=== PATIENT | male | born 1985 | race Caucasian/White ===

== ENCOUNTER 2021-06-18 13:19 | Inpatient (IN) | payer OTHER ==
[2021-06-18] MEDS ORDERED: NALOXONE 0.4 MG/ML 1 ML VIAL IVP STA (13:30)
[2021-06-18] MEDS ORDERED: SODIUM CHLORIDE 0.9% 500 ML 500 ML IV STA (13:31)
[2021-06-18] MEDS ORDERED: SODIUM CHLORIDE 0.9% 1,000 ML IV STA ×2 (13:31→15:05)
[2021-06-18 13:34] LABS: Glucose,Whole Blood 164 mg/dL (75-99)
--- NOTE | 2021-06-18 13:35 | ED ---
General Adult HPI - General Chief complaint: Altered Mental Status Stated complaint: unresponsive Time Seen by Provider: 06/18/21 13:20 Source: patient, EMS, RN notes reviewed, old records reviewed Mode of arrival: EMS Limitations: no limitations - History of Present Illness Initial comments: This is a male who was found unresponsive we have no name or age and the patient he is not speaking to us and no one is with the patient. He was found unrespons anthony behind an old restaurant there was no indication at the scene that we got that there was any drug paraphernalia. There is no gross trauma noted but there is no other history available at this time. Patient remains completely unresponsive and nonverbal - Related Data Allergies Allergy/AdvReac Type Severity Reaction Status Date / Time Unable to Assess Allergy Verified 06/18/21 13:30 Review of Systems ROS Statement: Those systems with pertinent positive or pertinent negative responses have been documented in the HPI. ROS Other: All systems not noted in ROS Statement are negative. Past Medical History Past Medical History: Unable to Obtain History of Any Multi-Drug Resistant Organisms: Unobtainable Past Surgical History: Unable to Obtain Past Psychological History: Unable to Obtain Smoking Status: Unknown if ever smoked Past Alcohol Use History: Unable to Obtain Past Drug Use History: Unable to Obtain General Exam - General Exam Comments Initial Comments: GENERAL: Patient is well-developed and well-nourished. Patient is unresponsive ENT: Neck is soft and supple. No significant lymphadenopathy is noted. Oropharynx is clear. Moist mucous membranes. EYES: The sclera were anicteric and conjunctiva were pink and moist. Unable to assess extraocular motion. Pupils are not pinpoint. PULMONARY: Unlabored respirations. Good breath sounds bilaterally. No audible rales rhonchi or wheezing was noted. CARDIOVASCULAR: There is a regular rate and rhythm without any murmurs gallops or rubs. Femoral pulses are equal bilaterally ABDOMEN: Soft and nontender with normal bowel sounds. No palpable organomegaly was noted. There is no palpable pulsatile mass. SKIN: Skin is clear with no lesions or rashes and otherwise unremarkable. NEUROLOGIC: Patient is patient is unresponsive. Patient does localize to pain. There is no verbal eyes are open spontaneously. MUSCULOSKELETAL: Patient does not follow commands unable to assess LYMPHATICS: No significant lymphadenopathy is noted PSYCHIATRIC: Unable to at this time Limitations: no limitations Course Vital Signs 06/18/21 06/18/21 06/18/21 13:20 13:30 13:31 Temperature 96.9 F L Pulse Rate 97 93 Respiratory 30 H 30 H 30 H Rate Blood Pressure 141/95 143/89 O2 Sat by Pulse 99 99 Oximetry Medical Decision Making - Medical Decision Making EKG shows normal sinus rhythm at 95 bpm DC interval is 116 QRS is under 4 QT interval 366 QTC is 459. Patient's EKG shows some slight ST segment depression in precordial leads V45 and 6. Patient's lactic acid was elevated however there were no signs of infection. Patient is highly intoxicated and lactic acidosis is probably secondary to that. Patient still was not verbal but he was able to get up and get out of bed and walk around. CT of his head and C-spine are negative. I spoke with Dr. Dhillon he agreed to admit the patient admitted the patient wrote admitting orders. - Lab Data Result diagrams: 06/18/21 13:38 06/18/21 13:38 Lab Results 06/18/21 06/18/21 06/18/21 Range/Units 13:22 13:38 13:38 WBC 8.3 (3.8-10.6) k/uL RBC 4.66 (4.30-5.90) m/uL Hgb 14.1 (13.0-17.5) gm/dL Hct 41.2 (39.0-53.0) % MCV 88.4 (80.0-100.0) fL MCH 30.2 (25.0-35.0) pg MCHC 34.2 (31.0-37.0) g/dL RDW 16.0 H (11.5-15.5) % Plt Count 190 (150-450) k/uL MPV 8.6 Neutrophils % 73 % Lymphocytes % 18 % Monocytes % 5 % Eosinophils % 0 % Basophils % 1 % Neutrophils # 6.1 (1.3-7.7) k/uL Lymphocytes # 1.5 (1.0-4.8) k/uL Monocytes # 0.4 (0-1.0) k/uL Eosinophils # 0.0 (0-0.7) k/uL Basophils # 0.1 (0-0.2) k/uL Poikilocytosis Slight Sodium (137-145) mmol/L Potassium (3.5-5.1) mmol/L Chloride (98-107) mmol/L Carbon Dioxide (22-30) mmol/L Anion Gap mmol/L BUN (9-20) mg/dL Creatinine (0.66-1.25) mg/dL Est GFR (CKD-EPI)AfAm (>60 ml/min/1.73 sqM) Est GFR (CKD-EPI)NonAf (>60 ml/min/1.73 sqM) Glucose (74-99) mg/dL POC Glucose (mg/dL) 164 H (75-99) mg/dL POC Glu [employer] ID Aidee Davis Plasma Lactic Acid Renato (0.7-2.0) mmol/L Calcium (8.4-10.2) mg/dL Total Bilirubin (0.2-1.3) mg/dL AST (17-59) U/L ALT (4-49) U/L Alkaline Phosphatase (38-126) U/L Creatine Kinase (55-170) U/L Troponin I (0.000-0.034) ng/mL Total Protein (6.3-8.2) g/dL Albumin (3.5-5.0) g/dL Amylase (30-110) U/L Lipase U/L Salicylates mg/dL Urine Opiates Screen Not Detected (NotDetected) Ur Oxycodone Screen Not Detected (NotDetected) Urine Methadone Screen Not Detected (NotDetected) Ur Propoxyphene Screen Not Detected (NotDetected) Acetaminophen ug/mL Ur Barbiturates Screen Not Detected (NotDetected) U Tricyclic Antidepress Not Detected (NotDetected) Ur Phencyclidine Scrn Not Detected (NotDetected) Ur Amphetamines Screen Detected H (NotDetected) U Methamphetamines Scrn Detected H (NotDetected) U Benzodiazepines Scrn Not Detected (NotDetected) Urine Cocaine Screen Detected H (NotDetected) U Marijuana (THC) Screen Detected H (NotDetected) Serum Alcohol mg/dL 06/18/21 06/18/21 06/18/21 Range/Units 13:38 13:38 13:38 WBC (3.8-10.6) k/uL RBC (4.30-5.90) m/uL Hgb (13.0-17.5) gm/dL Hct (39.0-53.0) % MCV (80.0-100.0) fL MCH (25.0-35.0) pg MCHC (31.0-37.0) g/dL RDW (11.5-15.5) % Plt Count (150-450) k/uL MPV Neutrophils % % Lymphocytes % % Monocytes % % Eosinophils % % Basophils % % Neutrophils # (1.3-7.7) k/uL Lymphocytes # (1.0-4.8) k/uL Monocytes # (0-1.0) k/uL Eosinophils # (0-0.7) k/uL Basophils # (0-0.2) k/uL Poikilocytosis Sodium 140 (137-145) mmol/L Potassium 3.1 L (3.5-5.1) mmol/L Chloride 107 (98-107) mmol/L Carbon Dioxide 14 L (22-30) mmol/L Anion Gap 19 mmol/L BUN 8 L (9-20) mg/dL Creatinine 0.49 L (0.66-1.25) mg/dL Est GFR (CKD-EPI)AfAm >90 (>60 ml/min/1.73 sqM) Est GFR (CKD-EPI)NonAf 78 (>60 ml/min/1.73 sqM) Glucose 169 H (74-99) mg/dL POC Glucose (mg/dL) (75-99) mg/dL POC Glu [employer] ID Plasma Lactic Acid Renato 5.6 H* (0.7-2.0) mmol/L Calcium 8.9 (8.4-10.2) mg/dL Total Bilirubin 0.4 (0.2-1.3) mg/dL AST 142 H (17-59) U/L ALT 163 H (4-49) U/L Alkaline Phosphatase 57 (38-126) U/L Creatine Kinase 227 H (55-170) U/L Troponin I <0.012 (0.000-0.034) ng/mL Total Protein 7.8 (6.3-8.2) g/dL Albumin 4.3 (3.5-5.0) g/dL Amylase 397 H* (30-110) U/L Lipase 5009 U/L Salicylates <1.0 mg/dL Urine Opiates Screen (NotDetected) Ur Oxycodone Screen (NotDetected) Urine Methadone Screen (NotDetected) Ur Propoxyphene Screen (NotDetected) Acetaminophen <10.0 ug/mL Ur Barbiturates Screen (NotDetected) U Tricyclic Antidepress (NotDetected) Ur Phencyclidine Scrn (NotDetected) Ur Amphetamines Screen (NotDetected) U Methamphetamines Scrn (NotDetected) U Benzodiazepines Scrn (NotDetected) Urine Cocaine Screen (NotDetected) U Marijuana (THC) Screen (NotDetected) Serum Alcohol 468 H* mg/dL Disposition Clinical Impression: Alcoholic intoxication, Cocaine abuse, Methamphetamine abuse, Lactic acidosis, Pancreatitis Disposition: ADMITTED IP TO THIS HOSP Referrals: None,Stated [Primary Care Provider] - 1-2 days Time of Disposition: 16:35
[2021-06-18 14:06] LABS: Basophils # (A) 0.1 k/uL (0-0.2); Basophils % (A) 1 %; Eosinophils % (A) 0 %; HCT 41.2 % (39.0-53.0); HGB 14.1 gm/dL (13.0-17.5); Lymphocytes # (A) 1.5 k/uL (1.0-4.8); Lymphocytes % (A) 18 %; MCH 30.2 pg (25.0-35.0); MCHC 34.2 g/dL (31.0-37.0); MCV 88.4 fL (80.0-100.0); Mean Platelet Volume 8.6; Monocytes # (A) 0.4 k/uL (0-1.0); Monocytes % (A) 5 %; Neutrophils # (A) 6.1 k/uL (1.3-7.7); Neutrophils % (A) 73 %; Platelet Count 190 k/uL (150-450); Poikilocytosis Slight; RBC 4.66 m/uL (4.30-5.90); WBC 8.3 k/uL (3.8-10.6)
[2021-06-18 14:18] LABS: ALT 163 U/L (4-49); AST 142 U/L (17-59); Acetaminophen <10.0 ug/mL; African American GFR (CKD) >90 (>60 ml/min/1.73 sqM); Albumin 4.3 g/dL (3.5-5.0); Alkaline Phosphatase 57 U/L (38-126); Anion Gap 19 mmol/L; Blood Urea Nitrogen 8 mg/dL (9-20); Calcium 8.9 mg/dL (8.4-10.2); Carbon Dioxide 14 mmol/L (22-30); Chloride 107 mmol/L (98-107); Creatine Kinase 227 U/L (55-170); Glucose 169 mg/dL (74-99); Non-African American GFR(CKD) 78 (>60 ml/min/1.73 sqM); Potassium 3.1 mmol/L (3.5-5.1); Salicylate <1.0 mg/dL; Sodium 140 mmol/L (137-145); Total Bilirubin 0.4 mg/dL (0.2-1.3); Total Protein 7.8 g/dL (6.3-8.2)
--- NOTE | 2021-06-18 14:21 | CT ---
EXAMINATION TYPE: CT brain cspine wo con DATE OF EXAM: 06/18/2021 COMPARISON: None HISTORY: Unresponsive CT DLP: 1249.8 mGycm Automated exposure control for dose reduction was used. TECHNIQUE: CT scan of the head and cervical spine are performed without contrast. FINDINGS: There is no acute intracranial hemorrhage, mass effect, or midline shift identified. The ventricles and sulci are within normal limits in size. The globes are intact and the visualized sin uses are clear. Cervical spine is visualized in its entirety from C1 through upper thoracic levels and demonstrates s atisfactory alignment without evidence of acute fracture or dislocation. Prevertebral soft tissue ap pears within normal limits. The C1-C2 articulation is unremarkable. IMPRESSION: 1. There is no acute fracture or dislocation evident in the cervical spine. 2. No acute intracranial hemorrhage, mass effect, or midline shift is seen.
[2021-06-18 14:38] LABS: Amphetamine Screen,Urine Detected (NotDetected); Barbiturate Screen,Urine Not Detected (NotDetected); Benzodiazepines Screen,Urine Not Detected (NotDetected); Cocaine Screen,Urine Detected (NotDetected); Methadone Screen, Urine Not Detected (NotDetected); Opiate Screen,Urine Not Detected (NotDetected); Oxycodone Screen, Urine Not Detected (NotDetected); Phencyclidine Screen,Urine Not Detected (NotDetected); Tricyclic Antidepressant,Urine Not Detected (NotDetected); Urn Cannabinoid Scrn Detected (NotDetected)
[2021-06-18 14:47] LABS: Alcohol 468 mg/dL; Amylase 397 U/L (30-110)
[2021-06-18 15:04] LABS: Lipase 5009 U/L
[2021-06-18] MEDS: 1: MVI, ADULT NO.4 WITH VIT K 10 ML, THIAMINE 100 MG, FOLIC ACID 1 MG in SODIUM CHLORIDE IV SCH ×4 (16:02)
[2021-06-18] MEDS ORDERED: POTASSIUM CHLORIDE 20 MEQ in WATER FOR INJECTION 1 100ML.BAG IVPB STA (16:11)
[2021-06-18] MEDS ORDERED: SODIUM CHLORIDE 0.9% 1,000 ML IV ONE (16:36)
[2021-06-18] MEDS ORDERED: LORazepam 2 MG/ML INJ IV PRN ×2 (19:48)
[2021-06-18] MEDS ORDERED: Potassium Replacement Protocol 1 EACH MISC MISCELLANE PRN (19:49)
[2021-06-18] MEDS ORDERED: ACETAMINOPHEN TAB 500 MG TAB PO PRN (19:49)
[2021-06-18] MEDS ORDERED: Magnesium Replacement Protocol 1 EACH MISC MISCELLANE PRN (19:49)
--- NOTE | 2021-06-18 20:46 | HP ---
HISTORY AND PHYSICAL CHIEF COMPLAINT: Change in mental status. HISTORY OF PRESENT ILLNESS: This is a 35-year-old gentleman with a past medical history of unknown medical history, apparently not being followed up at any primary physician's office, apparently found to be unresponsive behind a store. The patient taken to [facility] and the patient was suspected drug intoxication. Patient taken to [facility] and admitted for further evaluation and treatment. The evaluation showed potassium 3.1. Lactic acid elevated to 3.6 and amylase is 397 indicating some pancreatitis. AST/ALT was elevated. Drug screen is positive for amphetamine, methamphetamine, cocaine, marijuana, and alcohol was 468. Patient admitted for further evaluation and treatment. Patient is waking up slightly alert, restless at this time but stuporous and unable to give a coherent history. The patient was even noted as a Ana María Huntley in the ER initially. MEDICATIONS: Home medications are Vistaril, buspirone, Effexor, Seroquel, Haldol D and Cogentin. ALLERGIES: None. Family history, social history and review of systems could not be taken. PHYSICAL EXAMINATION: Patient is stuporous. Pulse is 109, blood pressure 141/90, respiration 20, temperature normal, pulse ox 97% on room air. HEENT: Conjunctivae normal. Oral mucosa moist. NECK is no jugular venous distention. No carotid bruit. No lymph node enlargement. CARDIOVASCULAR systems: S1, S2. RESPIRATION: Breath sounds diminished in the bases. A few scattered rhonchi. ABDOMEN: Soft, nontender. No mass. NERVOUS SYSTEM: Higher functions as mentioned earlier. Otherwise full exam cannot be done. SKIN: No ulcer, no rash and no bleeding. JOINTS: No active deforming arthropathy. LABS: WBC 8.2, hemoglobin 14.1, sodium 130, potassium 3.9. ASSESSMENT: 1. Change in mental status acute metabolic encephalopathy possibly drug induced. 2. Acute alcohol intoxication. 3. Polysubstance abuse. 4. Increased AST/ALT possibly alcoholic hepatitis. 5. Elevated lactic acid post secondary dehydration. 6. Hypokalemia. 7. Decreased CO2. 8. Elevated amylase, possibly mild acute pancreatitis. 9. History of possible psychiatric disease. RECOMMENDATIONS AND DISCUSSION: This 35-year-old gentleman who presented with multiple complex medical issues, we will monitor the patient closely, continue the current medications, management and symptomatic treatment. The patient is waking up at this time. I recommend [facility] protocol, psych consultation. Resume some of the home medications once the patient is awake and continue to monitor. The prognosis guarded because of multiple complex medical issues. Further recommendations to follow. MMODL / IJN: [id number] /
[2021-06-18] MEDS: HEPARIN SODIUM,PORCINE/PF 5,000 UNIT/0.5 ML SYRINGE SQ SCH (21:19)
[2021-06-19] MEDS: 1: MVI, ADULT NO.4 WITH VIT K 10 ML, THIAMINE 100 MG, FOLIC ACID 1 MG in SODIUM CHLORIDE IV SCH ×12 (05:03→19:55)
[2021-06-19 08:32] LABS: African American GFR (CKD) 163.9 (60.0-200.0); Albumin 3.7 g/dL (3.80-4.90); Albumin/Globulin Ratio 1.16 (1.60-3.17); Anion Gap 9.2 mmol/L (4.00-12.00); Calcium 7.4 mg/dL (8.7-10.3); Carbon Dioxide 18.8 mmol/L (21.6-31.8); Globulin 3.2 g/dL (1.6-3.3); Non-African American GFR(CKD) 141.4 (60.0-200.0); Potassium 3.9 mmol/L (3.5-5.5); Total Bilirubin 0.3 mg/dL (0.3-1.2); Total Protein 6.9 g/dL (6.2-8.2)
--- NOTE | 2021-06-19 08:52 | XR ---
EXAMINATION TYPE: XR chest 1V portable DATE OF EXAM: 06/19/2021 COMPARISON: 01/14/2021 HISTORY: Shortness of breath TECHNIQUE: Single frontal view of the chest is obtained. FINDINGS: There is no focal air space opacity, pleural effusion, or pneumothorax seen. The cardiac silhouette size is within normal limits. The osseous structures are intact. No overt failure. IMPRESSION: No acute process.
[2021-06-19] MEDS: HEPARIN SODIUM,PORCINE/PF 5,000 UNIT/0.5 ML SYRINGE SQ SCH ×2 (08:58→21:29)
[2021-06-19] MEDS: LORazepam 2 MG/ML INJ IV PRN ×3 (08:58→17:33)
[2021-06-19] MEDS ORDERED: PANTOPRAZOLE 40 MG/10 ML VIAL IVP SCH (09:00)
[2021-06-19 09:35] LABS: African American GFR (CKD) >90 (>60 ml/min/1.73 sqM); Amylase 184 U/L (30-110); Anion Gap 7 mmol/L; Blood Urea Nitrogen 4 mg/dL (9-20); Calcium 8.6 mg/dL (8.4-10.2); Carbon Dioxide 22 mmol/L (22-30); Chloride 112 mmol/L (98-107); Glucose 118 mg/dL (74-99); Lipase 651 U/L (23-300); Non-African American GFR(CKD) >90 (>60 ml/min/1.73 sqM); Potassium 3.7 mmol/L (3.5-5.1); Sodium 141 mmol/L (137-145)
[2021-06-19 11:13] LABS: Basophils # (A) 0.05 X 10*3/uL (0.00-0.10); Basophils % (A) 0.9 %; Eosinophils # (A) 0.03 X 10*3/uL (0.04-0.35); Eosinophils % (A) 0.6 %; HCT 32.9 % (39.6-50.0); HGB 11.2 g/dL (13.0-17.0); Lymphocytes # (A) 1.31 X 10*3/uL (0.90-5.00); Lymphocytes % (A) 24.5 %; MCH 29.1 pg (27.0-32.0); MCV 85.5 fL (80.0-97.0); Mean Platelet Volume 10.9 fL (9.5-12.2); Monocytes % (A) 7.5 %; Neutrophils # (A) 3.55 X 10*3/uL (1.80-7.70); Neutrophils % (A) 66.3 %; Platelet Count 171 X 10*3/uL (140-440); RBC 3.85 X 10*6/uL (4.40-5.60); WBC 5.35 X 10*3/uL (4.50-10.00)
[2021-06-19] MEDS ORDERED: QUEtiapine 50 MG TAB PO PRN (13:20)
[2021-06-19] MEDS ORDERED: haloperidoL 5 MG TAB PO PRN (13:21)
--- NOTE | 2021-06-19 13:31 | P.CN ---
Psychiatric Consult - . Consult date: 06/19/21 Consult:: 06/19/21 13:23 IDENTIFYING DATA: This patient is a 35-year-old male with history of polysubstance abuse who is currently homeless REASON FOR REFERRAL: Psychiatry was consulted for psychiatric evaluation HISTORY OF PRESENT ILLNESS: The patient presented to the hospital yesterday as he was found unresponsive according to ER report. Patient was fine behind a old restaurant and was also carrying drug paraphernalia. Patient has a history of several psychiatric hospitalizations and polysubstance abuse. Recent computed tomography scan of his brain was negative. Patient's UDS is positive for methamphetamine, amphetamines, cocaine, THC. Patient's AST/ALT were elevated. Patient's blood alcohol level was 489 on admission. Patient has a history of going through severe withdrawals from alcohol including delirium tremens. Patient does follow-up at [facility]. He was seen today by editorial writer and was fairly alert during conversation. He was tremulous and states that he is feeling depressed at this time. He claims that he is feeling suicidal. He claims that he is going through withdrawals at this time and is scared. He states that he wants to go to rehab at [place] however is not able to say when he has an intake today. States that his sleep is poor. He claims that he is hearing voices telling him to hurt himself. He was fairly guarded/evasive about the events that occurred prior to him coming to the hospital. He states that he drank a 2 pints of whiskey and went behind a store to call his audit officer. He states that he is having anxiety at this time. He claims that he has not been taking his medications at home. At this time patient denies any homical ideations, intent or plan. Patient denies any visual hallucinations and denies any paranoia or delusions. Patients admits to using drugs recreationally including methamphetamine, cocaine, marijuana and alcohol as noted above. PAST PSYCHIATRIC HISTORY: Patient has a a history of polysubstance abuse and schizoaffective disorder. Patient has been on several different medications in the past including paliperidone and Seroquel along with Zoloft. Patient has had several different psychiatric hospitalizations and also has been court ordered. Patient denies any psychiatric outpatient follow-up. Patient denies any history of suicide attempts in the past. PAST MEDICAL HISTORY: Hepatitis C. ALLERGIES: as per EMR. CHEMICAL DEPENDENCY HISTORY: as per HPI. FAMILY PSYCHIATRIC/SUBSTANCE USE HISTORY: Unable to obtain SOCIAL HISTORY: Unable to obtain. Patient is homeless however. MENTAL STATUS EXAM: General Appearance: Patient appears to be shoveled appearance, tremulous, stated age is alert, cooperative. Patient appears to have poor hygiene and grooming wearing hospital gown with poor eye contact. Behavior: Patient is calmly lying in bed without any agitated behavior. Tremulous. Speech: Patient's speech is fluent and nonpressured. Mood/Affect: Patient reports their mood is "depressed and anxious", affect is congruent Suicidality/Homicidality: Patient denies having any suicidal or homicidal ideation intent or plan. Perceptions: Patient denies any visual hallucinations . He states that he is hearing voices telling him to kill himself. Though content/process: [place], poverty of content. Guarded/evasive. Memory and concentration: AOX3, grossly intact for the purposes of this session. Can spell "WORLD" backwards Judgment and insight: poor IMPRESSIONS: Schizoaffective disorder, depressive type Alcohol use disorder, severe, currently in withdrawal Cocaine use disorder Cannabis use disorders Methamphetamine abuse Nicotine dependence PLAN: -At this time patient DOES meet criteria for inpatient psychiatric admission. -Would recommend the following medication changes/additions: Seroquel 50 mg daily at bedtime when necessary for insomnia. Patient was receiving Invega Sustenna long-acting injection shots every month however unsure of the last dose. Valium 5 mg 3 times a day for alcohol withdrawal. Haldol by mouth and IM when necessary for acute agitation/psychosis. -CIWA protocol with PRN Ativan for alcohol withdrawal. Continue to monitor vital signs. -Continue 1:1 sitter for safety -Cannot leave AMA at this time. Patient will need a petition and certification if attempting to leave AMA. -Harness Puller spoke with patient about substance abuse and the harmful effects on medical and mental health, patient verbally understood and agreed. -Patient should be treated for impending DTs for 48 hours until he is more stable from alcohol withdrawal then patient can be transferred to the mental health unit. -Communicated plan to patient's nurse -Psychiatry will sign off at this time -Please contact with any questions.
[2021-06-19] MEDS ORDERED: diazePAM 5 MG TAB PO SCH (16:00)
--- NOTE | 2021-06-19 18:03 | PN ---
PROGRESS NOTE DATE OF SERVICE: 06/19/2021 This 35-year-old gentleman who was admitted with change in mental status also had acute metabolic encephalopathy. The patient had ETOH intoxication. Psychiatry saw the patient today and recommended other medication adjustments. Impending DTs at this time. The patient continues to be drowsy and at times arousable and restless. PHYSICAL EXAMINATION: Pulse is 99, blood pressure 125/84, respirations 16, temperature 98 degrees, pulse ox 100% on room air. HEENT: Conjunctivae normal. NECK: No jugular venous distention. CARDIOVASCULAR: S1, S2 muffled. RESPIRATION: Breath sounds diminished at the bases. A few scattered rhonchi. ABDOMEN: Soft, nontender. NERVOUS SYSTEM: No focal deficit. LAB STUDIES: Hemoglobin 11.2 and glucose 118. Amylase and lipase are elevated. Lactic acid 3.1. ASSESSMENT: 1. Change in mental status, acute metabolic encephalopathy, possibly multiple drug- induced. 2. Acute alcohol intoxication, present on admission. 3. Impending delirium tremens and early delirium tremens. 4. Polysubstance abuse. 5. Acute pancreatitis secondary to alcohol. 6. Increased AST, ALT; possibly alcoholic hepatitis. 7. Elevated lactic acid, possibly secondary to dehydration, present on admission. 8. Hypokalemia. 9. Decreased carbon dioxide. 10.Elevated amylase and lipase. 11.History of schizoaffective disorder, depressive type. RECOMMENDATIONS AND DISCUSSION: I recommend to continue current medications, continue with symptomatic treatment. Otherwise, CIWA protocol. Will repeat electrolytes tomorrow. Closely follow with Psychiatry. Social Work and Case Management to arrange for outpatient drug rehab. Impending DT precautions. Prognosis is guarded. MMODL / IJN: [id number] / [facility]
[2021-06-19] MEDS: diazePAM 5 MG TAB PO SCH ×2 (21:28→23:45)
[2021-06-20] MEDS: diazePAM 5 MG TAB PO SCH ×2 (08:36→20:29)
[2021-06-20] MEDS: LORazepam 2 MG/ML INJ IV PRN ×3 (08:36→20:45)
[2021-06-20] MEDS: PANTOPRAZOLE 40 MG TABLET PO SCH (08:36)
[2021-06-20] MEDS: HEPARIN SODIUM,PORCINE/PF 5,000 UNIT/0.5 ML SYRINGE SQ SCH ×2 (08:37→20:30)
[2021-06-20] MEDS: HALOPERIDOL LACTATE 5 MG/ML 1 ML VIAL IM PRN ×2 (11:50→17:17)
[2021-06-20 12:01] LABS: Basophils # (A) 0.03 X 10*3/uL (0.00-0.10); Basophils % (A) 0.7 %; Eosinophils # (A) 0.13 X 10*3/uL (0.04-0.35); Eosinophils % (A) 2.9 %; HCT 33.3 % (39.6-50.0); HGB 11.5 g/dL (13.0-17.0); Lymphocytes # (A) 1.13 X 10*3/uL (0.90-5.00); Lymphocytes % (A) 25.6 %; MCH 29.6 pg (27.0-32.0); MCHC 34.5 g/dL (32.0-37.0); MCV 85.8 fL (80.0-97.0); Mean Platelet Volume 11.6 fL (9.5-12.2); Monocytes # (A) 0.42 X 10*3/uL (0.20-1.00); Monocytes % (A) 9.5 %; Neutrophils # (A) 2.69 X 10*3/uL (1.80-7.70); Neutrophils % (A) 61.1 %; Platelet Count 149 X 10*3/uL (140-440); RBC 3.88 X 10*6/uL (4.40-5.60); WBC 4.41 X 10*3/uL (4.50-10.00)
--- NOTE | 2021-06-20 12:35 | P.PN ---
Subjective Progress Note Date: 06/20/21 Principal diagnosis: Delirium tremens secondary to alcohol withdrawal 35-year-old gentleman with the past medical history of alcohol abuse admitted for encephalopathy due to alcohol intoxication. On 06/20/2021- patient is lying in bed appears to have tremors and is slightly confused. Sitter at the bedside. As per discussion with the nursing staff patient is still requiring Ativan for delirium tremens. Patient states that he has palpitations, denies having any chest pain or difficulty in breathing. He denies having any abdominal pain nausea vomiting. He states that his last drink was couple of days back and that he is trying to quit. On reviewing the vitals T-max of 99.1, heart rate 90, respiratory rate 17, blood pressure 127/81, saturating at 99% on room air. Objective - Vital Signs Vital signs: Vital Signs Temp 99.1 F 06/20/21 02:00 Pulse 52 L 06/20/21 02:00 Resp 17 06/20/21 02:00 BP 127/81 06/20/21 02:00 Pulse Ox 99 06/20/21 02:00 Intake & Output 06/19/21 06/20/21 06/20/21 18:59 06:59 18:59 Weight 81.647 kg Other: # Voids 5 3 - Exam Physical exam GEN. APPEARANCE: Having tremors HE ENT: No pallor. No icterus. Neck no JVD RESPIRATORY EXAM: Bilateral breath sounds are positive. No wheeze or crackles CARDIOVASCULAR EXAM: S1-S2 heard. Tachycardia GI/ABDOMINAL EXAM: soft, normal bowel sounds. Nontender, nondistended no organomegaly EXTREMITIES EXAM: No pedal edema NEUROLOGICAL EXAM: Slightly confused, no focal deficits SKIN EXAM: no rash - Labs CBC & Chem 7: 06/20/21 08:43 06/19/21 07:47 Labs: Abnormal Lab Results - Last 24 Hours (Table) 06/19/21 Range/Units 07:47 RBC 3.85 L (4.40-5.60) X 10*6/uL Hgb 11.2 L (13.0-17.0) g/dL Hct 32.9 L (39.6-50.0) % RDW 15.0 H (11.5-14.5) % Eosinophils # 0.03 L (0.04-0.35) X 10*3/uL Assessment and Plan Assessment: ASSESSMENT Encephalopathy due to delirium tremens Acute alcohol intoxication hasn't on admission Polysubstance abuse Acute pancreatitis secondary to alcohol Transaminitis Hypokalemia History of schizoaffective disorder, depressive type PLAN: Patient to be monitored for delirium tremens, on CIWA protocol. Will replace electrolytes. Patient was evaluated by psychiatric services and to cont inue with DT precautions. Patient cannot leave AGAINST MEDICAL ADVICE, to continue with sitter at bedside. Further recommendations depending on the progress of the patient.
[2021-06-20 21:03] LABS: Albumin 3.5 g/dL (3.80-4.90); Albumin/Globulin Ratio 1.17 (1.60-3.17); Anion Gap 9.4 mmol/L (4.00-12.00); BUN/Creat Ratio 11.67 Ratio (12.00-20.00); Calcium 8.6 mg/dL (8.7-10.3); Carbon Dioxide 20.6 mmol/L (21.6-31.8); Non-African American GFR(CKD) 131.2 (60.0-200.0); Potassium 3.7 mmol/L (3.5-5.5); Total Bilirubin 0.6 mg/dL (0.3-1.2); Total Protein 6.5 g/dL (6.2-8.2)
[2021-06-20] MEDS: 1: MVI, ADULT NO.4 WITH VIT K 10 ML, THIAMINE 100 MG, FOLIC ACID 1 MG in SODIUM CHLORIDE IV SCH ×4 (21:18)
[2021-06-21] MEDS: LORazepam 2 MG/ML INJ IV PRN ×8 (00:06→23:06)
[2021-06-21] MEDS: diazePAM 5 MG TAB PO SCH ×2 (07:04→22:57)
[2021-06-21] MEDS: PANTOPRAZOLE 40 MG TABLET PO SCH (07:05)
[2021-06-21] MEDS: HEPARIN SODIUM,PORCINE/PF 5,000 UNIT/0.5 ML SYRINGE SQ SCH ×2 (07:06→22:57)
[2021-06-21] MEDS: HALOPERIDOL LACTATE 5 MG/ML 1 ML VIAL IM PRN ×2 (07:06→10:35)
[2021-06-21] MEDS: 1: MVI, ADULT NO.4 WITH VIT K 10 ML, THIAMINE 100 MG, FOLIC ACID 1 MG in SODIUM CHLORIDE IV SCH ×16 (08:50→21:33)
[2021-06-21] MEDS: NICOTINE 21MG/24HR PATCH TRANSDERM SCH (09:06)
[2021-06-21] MEDS: QUEtiapine 200 MG TAB PO SCH (22:56)
--- NOTE | 2021-06-22 02:05 | P.PN ---
Subjective Progress Note Date: 06/21/21 Principal diagnosis: Delirium tremens secondary to alcohol withdrawal 35-year-old gentleman with the past medical history of alcohol abuse admitted for encephalopathy due to alcohol intoxication. On 06/20/2021- patient is lying in bed appears to have tremors and is slightly confused. Sitter at the bedside. As per discussion with the nursing staff patient is still requiring Ativan for delirium tremens. Patient states that he has palpitations, denies having any chest pain or difficulty in breathing. He denies having any abdominal pain nausea vomiting. He states that his last drink was couple of days back and that he is trying to quit. On reviewing the vitals T-max of 99.1, heart rate 90, respiratory rate 17, blood pressure 127/81, saturating at 99% on room air. On 06/21/2021 -patient was seen and examined at the bedside. As per discussion with the nursing staff, patient became agitated this morning although stayed out of the window. Sitter was at the bedside and he was given a dose of Haldol which calmed him down. He is currently asleep and difficult to arouse. Review of systems could not be done. On reviewing the vitals temperature 98.4, heart rate 61, respiratory 16, blood pressure 134/83, saturating at 97% on room air. Patient's labs reviewed this morning hemoglobin stable around 9.5 platelets 149. Patient's medications have been reviewed Objective - Vital Signs Vital signs: Vital Signs Temp 98.1 F 06/21/21 08:07 Pulse 75 06/21/21 08:07 Resp 16 06/21/21 08:07 BP 141/92 06/21/21 08:07 Pulse Ox 98 06/21/21 08:07 Intake & Output 06/20/21 06/21/21 06/21/21 18:59 06:59 18:59 Intake Total 1011.2 Balance 1011.2 Intake: Intake, IV Titration 1011.2 Amount Mvi, Adult No.4 with Vit 1011.2 K 10 ml Thiamine 100 mg Folic Acid 1 mg In Sodium Chloride 0.9% 1,000 ml @ 100 mls/hr IV .BY DURATION ADRIANNA Rx#: [id number] Other: # Voids 4 - Exam GEN. APPEARANCE: Having tremors HE ENT: No pallor. No icterus. Neck no JVD RESPIRATORY EXAM: Bilateral breath sounds are positive. No wheeze or crackles CARDIOVASCULAR EXAM: S1-S2 heard. Tachycardia GI/ABDOMINAL EXAM: soft, normal bowel sounds. Nontender, nondistended no organomegaly EXTREMITIES EXAM: No pedal edema NEUROLOGICAL EXAM: Drowsy , just got Haldol SKIN EXAM: no rash - Labs CBC & Chem 7: 06/20/21 08:43 06/19/21 17:48 Labs: Abnormal Lab Results - Last 24 Hours (Table) 06/19/21 Range/Units 17:48 Chloride 111 H (96-109) mmol/L Carbon Dioxide 20.6 L (21.6-31.8) mmol/L BUN 7.0 L (9.0-27.0) mg/dL BUN/Creatinine Ratio 11.67 L (12.00-20.00) Ratio Glucose 134 H (70-110) mg/dL Calcium 8.6 L (8.7-10.3) mg/dL AST 114 H (14-35) U/L ALT 127 H (10-49) U/L Albumin 3.50 L (3.80-4.90) g/dL Albumin/Globulin Ratio 1.17 L (1.60-3.17) g/dL Assessment and Plan Assessment: ASSESSMENT Encephalopathy due to delirium tremens Acute alcohol intoxication hasn't on admission Polysubstance abuse Acute pancreatitis secondary to alcohol Transaminitis Hypokalemia History of schizoaffective disorder, depressive type PLAN: Patient to be monitored for delirium tremens, on CIWA protocol and still requiring multiple doses of Ativan. Will replace electrolytes. Patient was evaluated by psychiatric services and to continue with DT precautions. Patient cannot leave AGAINST MEDICAL ADVICE, to continue with sitter at bedside. Further recommendations depending on the progress of the patient.
[2021-06-22] MEDS: 1: MVI, ADULT NO.4 WITH VIT K 10 ML, THIAMINE 100 MG, FOLIC ACID 1 MG in SODIUM CHLORIDE IV SCH ×8 (04:51→12:20)
[2021-06-22] MEDS: PANTOPRAZOLE 40 MG TABLET PO SCH (09:19)
[2021-06-22] MEDS: NICOTINE 21MG/24HR PATCH TRANSDERM SCH (09:19)
[2021-06-22] MEDS: HEPARIN SODIUM,PORCINE/PF 5,000 UNIT/0.5 ML SYRINGE SQ SCH ×2 (09:19→21:08)
[2021-06-22] MEDS: diazePAM 5 MG TAB PO SCH ×2 (09:19→21:08)
[2021-06-22] MEDS: QUEtiapine 200 MG TAB PO SCH (21:08)
[2021-06-23] MEDS: 1: MVI, ADULT NO.4 WITH VIT K 10 ML, THIAMINE 100 MG, FOLIC ACID 1 MG in SODIUM CHLORIDE IV SCH ×8 (01:25→10:59)
[2021-06-23 07:45] VITALS: RESP 18
[2021-06-23] MEDS: PANTOPRAZOLE 40 MG TABLET PO SCH (08:01)
[2021-06-23] MEDS: LORazepam 2 MG/ML INJ IV PRN (08:18)
[2021-06-23] MEDS ORDERED: FAMOTIDINE 20 MG/2 ML VIAL IV SCH (09:00)
[2021-06-23] MEDS: diazePAM 5 MG TAB PO SCH (09:15)
[2021-06-23] MEDS: HEPARIN SODIUM,PORCINE/PF 5,000 UNIT/0.5 ML SYRINGE SQ SCH (09:15)
[2021-06-23] MEDS: NICOTINE 21MG/24HR PATCH TRANSDERM SCH (09:15)
[2021-06-23 11:17] LABS: Basophils # (A) 0.03 X 10*3/uL (0.00-0.10); Basophils % (A) 0.7 %; Eosinophils # (A) 0.24 X 10*3/uL (0.04-0.35); Eosinophils % (A) 5.4 %; HCT 34.5 % (39.6-50.0); HGB 11.3 g/dL (13.0-17.0); Lymphocytes # (A) 1.46 X 10*3/uL (0.90-5.00); Lymphocytes % (A) 32.9 %; MCH 28.8 pg (27.0-32.0); MCHC 32.8 g/dL (32.0-37.0); Mean Platelet Volume 11.6 fL (9.5-12.2); Monocytes # (A) 0.42 X 10*3/uL (0.20-1.00); Monocytes % (A) 9.5 %; Neutrophils # (A) 2.27 X 10*3/uL (1.80-7.70); Platelet Count 159 X 10*3/uL (140-440); RBC 3.92 X 10*6/uL (4.40-5.60); RDW 15.5 % (11.5-14.5); WBC 4.44 X 10*3/uL (4.50-10.00)
[2021-06-23 15:04] VITALS: BP 142/88; PULSE 61; TEMP 97.7
[2021-06-23 15:20] LABS: Albumin/Globulin Ratio 1.11 (1.60-3.17); Anion Gap 5.1 mmol/L (4.00-12.00); BUN/Creat Ratio 13.33 Ratio (12.00-20.00); Calcium 8.5 mg/dL (8.7-10.3); Carbon Dioxide 22.9 mmol/L (21.6-31.8); Globulin 2.7 g/dL (1.6-3.3); Non-African American GFR(CKD) 131.2 (60.0-200.0); Total Bilirubin 0.3 mg/dL (0.3-1.2); Total Protein 5.7 g/dL (6.2-8.2)
[2021-06-23] MEDS ORDERED: diazePAM 5 MG TAB PO SCH (21:00)
--- NOTE | 2021-06-24 01:39 | P.DS ---
Providers Date of admission: 06/18/21 16:36 Attending physician: Iliana Ferreira Consults: 06/19/21 10:57 Consult Physician Urgent Consulting Provider: Krunal Rodríguez Consult Reason/Comments: Depression Do you want consulting provider notified?: Yes Primary care physician: Stated None Hospital Course: Diagnoses: Alcohol abuse and alcohol withdrawal with delirium tremens Cocaine abuse and methamphetamine abuse Schizoaffective disorder, depressive type with intention to hurt self, patient is a petitioned with recommendation by psychiatric for inpatient mental health admission Elevated liver enzymes suspicious for alcoholic transaminitis, asymptomatic Elevated lipase, possible mild alcoholic pancreatitis, improved and patient tolerated diet well with no abdominal pain Hospital course: This is a pleasant 55 years old male who presents because he was found sleeping and less responsive behind and old restaurant mostly secondary to alcohol affect. On admission his alcohol level was significantly elevated at 468, he was dehydrated and he was admitting taking alcohol, has he's admitting drinking 2 pints of whiskey prior to admission to the hospital. Associated with substance abuse including methamphetamines and weight, wound previous history of heroin abuse, patient admits using the substances during the week prior to admission. Patient was treated with benzodiazepine as per CIWA protocol and thiamine, also he was placed on Valium 10 mg twice a day, on the day of discharge he was sleepy from benzodiazepines but readily awakens with verbal stimuli eyes and answer questions appropriately, he is oriented to time, place and person and to the surrounding and he knows why he is in the hospital. Chest pain or dyspnea or headache or weakness to me. Dizziness. Abdominal pain, no nausea vomiting and he has regular bowel movement. He tolerates diet well and he ate 100% of his meal. His CIWA score upon discharge was between 0 and 6. Patient also has been hearing voices asking him to hurt himself, he is been evaluated by psychiatrist who recommended patient admitted to mental health unit and that he cannot leave AMA. Patient was petitioned and cert placed in the chart. He is hemodynamically stable, mildly elevated liver enzymes and lipase are mostly secondary to alcohol affect but need to be monitored. Patient is medically stable and cleared to transfer to psych unit Problems and management plan were discussed with the patient and he verbalized understanding and acceptance Patient was found stable and can be discharged home however he needs follow-up as an outpatient. Patient was instructed to follow up with PCP within one week and patient agrees Physical exam -Gen: patient is a AAOx3, no distress, sleepy due to benzodiazepines, readily arousable CVS: S1-S2, RRR, no murmur Lungs: B/L CTA, no wheezing Abdomen: soft, no distention, no tenderness, positive bowel sounds Extremity: no leg edema or induration Time spent more than 35 minutes Plan - Discharge Summary Discharge Rx Participant: Yes New Discharge Prescriptions: No Action hydrOXYzine pamoate [Vistaril] 50 mg PO BID Venlafaxine HCl [Effexor XR] 75 mg PO DAILY Haloperidol Decanoate [Haldol D] 150 mg IM Q28D QUEtiapine [SEROquel] 200 mg PO DAILY QUEtiapine FUMARATE [SEROquel] 300 mg PO HS busPIRone HCL 15 mg PO BID Benztropine Mesylate [Cogentin] 0.5 mg PO BID Discharge Medication List Benztropine Mesylate [Cogentin] 0.5 mg PO BID 06/18/21 [History] Haloperidol Decanoate [Haldol D] 150 mg IM Q28D 06/18/21 [History] QUEtiapine FUMARATE [SEROquel] 300 mg PO HS 06/18/21 [History] QUEtiapine [SEROquel] 200 mg PO DAILY 06/18/21 [History] Venlafaxine HCl [Effexor XR] 75 mg PO DAILY 06/18/21 [History] busPIRone HCL 15 mg PO BID 06/18/21 [History] hydrOXYzine pamoate [Vistaril] 50 mg PO BID 06/18/21 [History] Follow up Appointment(s)/Referral(s): None,Stated [Primary Care Provider] - 1-2 days Activity/Diet/Wound Care/Special Instructions: Patient is medically stable and clear for transfer to inpatient psychiatric unit Discharge Disposition: TRANSFER TO PSYCH HOSP/UNIT
== END 2021-06-23 17:36 | DRG 896 ==
LOC: EC 13:19 → EDBD 16:36 → 4SSUR 16:36 → EEVIPCON 16:36 → 4SSUR 17:02
PROVIDERS: ADMIT Hospitalist; ATTEND Hospitalist
DX: F10.131 Alcohol abuse with withdrawal delirium (principal); G93.41 Metabolic encephalopathy; K85.20 Alcohol induced acute pancreatitis without necrosis or infection; E87.2 Acidosis; F10.129 Alcohol abuse with intoxication, unspecified; F14.10 Cocaine abuse, uncomplicated; Z20.822 Contact with and (suspected) exposure to COVID-19; F15.10 Other stimulant abuse, uncomplicated; Y90.8 Blood alcohol level of 240 mg/100 ml or more; F19.10 Other psychoactive substance abuse, uncomplicated; E87.6 Hypokalemia; E86.0 Dehydration; F25.1 Schizoaffective disorder, depressive type; R74.01 Elevation of levels of liver transaminase levels
CPT/HCPCS: 36415; 70450; 71045; 72125; 80048; 80053; 80143; 80179; 80306; 80320; 82150; 82550; 83605; 83690; 83735; 84484; 85025; 87635; 93005; 94760; 96361; 96365; 96366; 96375; 99285